=== PATIENT | female | born 1990 | race Caucasian/White ===

== ENCOUNTER 2018-08-29 17:44 | Emergency (ER) | payer OTHER ==
[~2018-08-29 17:44] MED LIST: GILDESS 1/201 TAB PO; MULTI VITAMINS1 TAB PO; PRENATAL1 TA1 PO
[2018-08-29 17:51] VITALS: BP 1112/71; TEMP 99.5
[2018-08-29] MEDS ORDERED: ZANTAC 150MG T150 MG PO (18:46)
[2018-08-29 19:20] LABS: COLLECTION METHOD CLEAN CATCH
[2018-08-29 19:26] LABS: MUCOUS Present /lpf; PH 6 (5-8); URINE APPEARANCE Clear; URINE BACTERIA Many /hpf; URINE BILIRUBIN Negative (NEGATIVE); URINE BLOOD Negative (NEGATIVE); URINE COLOR Yellow; URINE GLUCOSE Negative (NEGATIVE); URINE KETONE 1+ (NEGATIVE); URINE LEUKOCYTE ESTERASE Negative (NEGATIVE); URINE NITRATE Negative (NEGATIVE); URINE PROTEIN(semi-quant) Negative (NEGATIVE); URINE RBC 0-2 /hpf; URINE UROBILINOGEN Negative (NEGATIVE)
[2018-08-29] MEDS ORDERED: TAMIFLU 75MG75 MG PO (19:33)
[2018-08-29] MEDS ORDERED: MACROBID 1100 MG/CAP PO (19:33)
[2018-08-29 19:42] VITALS: PULSE 104
== END 2018-08-29 19:45 | disposition home or self-care (01) ==
LOC: COL.ER 17:44
PROVIDERS: Emergency Medicine
DX: O98.912 Unspecified maternal infectious and parasitic disease complicating pregnancy, second trimester (principal); O98.512 Other viral diseases complicating pregnancy, second trimester; R82.71 Bacteriuria; J10.1 Influenza due to other identified influenza virus with other respiratory manifestations; Z3A.22 22 weeks gestation of pregnancy

== ENCOUNTER 2018-08-31 09:55 | Emergency (ER) | payer OTHER ==
[~2018-08-31] VITALS: Ht 157.5 cm; Wt 67.5 kg
[~2018-08-31 09:55] MED LIST changes: +MACROBID 1100 MG/CAP PO; +TAMIFLU 75MG75 MG PO; +ZANTAC 150MG T150 MG PO
[2018-08-31 09:58] VITALS: BP 111/77; TEMP 98.3
[2018-08-31] MEDS ORDERED: AMOXICILLIN875 MG PO (10:25)
[2018-08-31 10:30] VITALS: PULSE 86
== END 2018-08-31 10:34 | disposition home or self-care (01) ==
LOC: COL.ER 09:55
DX: O26.892 Other specified pregnancy related conditions, second trimester (principal); O23.92 Unspecified genitourinary tract infection in pregnancy, second trimester; J11.89 Influenza due to unidentified influenza virus with other manifestations; H66.001 Acute suppurative otitis media without spontaneous rupture of ear drum, right ear; Z3A.23 23 weeks gestation of pregnancy

== ENCOUNTER → 2018-10-29 | Outpatient (CLI) | payer OTHER ==
[~2018-10-29] MED LIST changes: +AMOXICILLIN875 MG PO
== END ==
LOC: SUN.DIA 14:57
DX: O24.419 Gestational diabetes mellitus in pregnancy, unspecified control (principal); Z3A.26 26 weeks gestation of pregnancy
CPT/HCPCS: G0108

== ENCOUNTER → 2018-11-11 | Outpatient (CLI) | payer OTHER | LOC: SUN.DIA 08:42 | DX: O24.419 Gestational diabetes mellitus in pregnancy, unspecified control (principal); Z3A.28 28 weeks gestation of pregnancy | CPT/HCPCS: G0108 ==

== ENCOUNTER → 2018-11-25 | Outpatient (CLI) | payer OTHER | LOC: SUN.DIA 08:37 | DX: O24.419 Gestational diabetes mellitus in pregnancy, unspecified control (principal); Z3A.36 36 weeks gestation of pregnancy | CPT/HCPCS: G0108 ==

== ENCOUNTER 2019-01-01 03:43 | Inpatient (IN) | payer OTHER ==
[2019-01-01] VITALS (28 sets, daily range): BP systolic 90–146; BP diastolic 51–91; PULSE 66–144; TEMP 97.9–98.7
[~2019-01-01] VITALS: Ht 157.5 cm; Wt 80.0 kg
--- NOTE | 2019-01-01 03:50 | NUR ---
0350- Pt arrived on unit escorted by and with complaints of contractions. Pt denies any leaking of fluid, vaginal bleeding and reports normal movement. EFM and toco monitors started. SVE by this RN 4-/-2. Vital Signs WNL. 0405- Spoke with Dr. Rosenthal. We reviewed pt's arrival, SVE, FHR tracing and ctx pattern. Orders for labor admission received. 0415- IV started. Labs obtained. Fluids started per order. See EMAR for details. 0430- Consents signed. Off EFM to the bathroom. 0445- SHAYY Medina at the bedside for epidural placement. Information reviewed. Pt sitting up on the edge of the bed. SPO2 monitor placed. EFM intermittently tracing maternal HR as coorelates with SPO2 monitor. 0451- Single shot done per [employer]. See anesthesia record for details. 0455- Pt repositioned with left wedge. 0520- Cordero placed. SVE by this RN /-2. 0527- Pt left lateral with peanut ball placed.
[2019-01-01 04:27] LABS: MEAN CELL VOLUME 92 fl (80.0-100.0); MEAN CORPUSCULAR HEMOGLOBIN 31 pg (27.0-31.0); MEAN CORPUSCULAR HGB CONC 34 g/dl (33.0-37.0); MEAN PLATELET VOLUME 10.6 fl (7.4-10.4); PLATELET COUNT 235 K/mm3 (130-400); RED BLOOD COUNT 3.87 M/mm3 (4.10-5.30); REDCELL DISTRIBUTION WIDTH-CV 13.1 % (11.5-14.5)
[2019-01-01 04:28] LABS: HEMATOCRIT 35.5 % (37.0-47.0)
[2019-01-01 04:46] LABS: BAND 8 % (0-10); EOSINOPHIL 3 % (0-4); LYMPHOCYTE 16 % (20.0-51.0); METAMYELOCYTE 2 % (0-0); NEUTROPHILS 65 % (42.0-75.2); PLATELET ESTIMATE NORMAL (NORMAL)
[2019-01-01] MEDS ORDERED: PRENATAL (06:01)
--- NOTE | 2019-01-01 07:50 | NUR ---
FHR baseline 145-150bpm and variable deceleration noted decreasing to 110bpm and with gradual return to baseline. 0800: SVE-9-10/100/0 and variable deceleration noted with gradual return of baseline.
--- NOTE | 2019-01-01 08:15 | NUR ---
FHR baseline 145bpm. 0819: FHR monitor tracing maternal heart rate due to patient sitting forward. 0825: SVE-10/100/[address] Dunbar at nurses station and updated, orders to begin pushing with patient. Cordero catheter removed and patient prepared to begin pushing. FHR tracing recurrent variable deceleration with quick return of baseline. 0835: Patient begins to start pushing with this RN with every contraction. Pericare done Dr. Dunbar continues to view FHR strip at nurses station. 0855: Dr. Dunbar called in room for delivery. Patient prepped for vaginal delivery, bed taken apart, and begins to push with Dr. Dunbar. Dr Dunbar agrees with meconium fluid noted. 0901: Spontaneous vaginal delivery of head followed by body. Infant bulb syringed and onto patient abdomen, cord clamped by physician and cut by FOB. Cayetano RN assumes care of infant. 0905: Spontaneous delivery of placenta and pitocin started per protocol. Funal massage done and free flow, massaged until firm and no free flow present. Perineum intact and pericare done. Patient repositioned and free flow noted. Dr. Dunbar states uterus in boggy and massaged fundus until firm and free flow decreased. Dr. Dunbar orders methergine if bleeding continues. Patient repositioned and ice pack to perineum. Plan of care discussed and will continue to monitor.
[2019-01-02 07:25] VITALS: BP 118/82; PULSE 76; TEMP 97.8
[2019-01-02] MEDS ORDERED: MOTRIN 800800 MG/TAB PO (08:30)
[2019-01-02] MEDS ORDERED: PERCOCET 325 MG1 TA2 PO (08:30)
--- NOTE | 2019-01-02 11:40 | NUR ---
Congratulated the family on behalf of Christiane La.
== END 2019-01-02 13:35 | disposition home or self-care (01) | DRG 807 ==
LOC: LDRO 03:43 → LDR 04:05 → OB 12:00
PROVIDERS: ADMIT Obstetrics & Gynecology
PROC: 10E0XZZ Delivery of Products of Conception, External Approach (ICD-10-PCS; principal; 2019-01-01)
DX: O80 Encounter for full-term uncomplicated delivery (principal); Z37.0 Single live birth; Z3A.40 40 weeks gestation of pregnancy
CPT/HCPCS: J2210; J2590; J2791; J2795; J7120